=== PATIENT | female | born 1970 | race Caucasian/White ===

== ENCOUNTER 2017-08-31 16:50 | Emergency (ER) | payer OTHER ==
[~2017-08-31] VITALS: Ht 172.7 cm; Wt 100.7 kg
[~2017-08-31 16:50] MED LIST: MOBIC15 M1 PO; MULTIVITAMINS1 EAC9 PO
[2017-08-31 16:52] VITALS: BP 138/82
--- NOTE | 2017-08-31 17:07 | ED ANKLE/FOOT INJURY COMPLAINT ---
History of Present Illness General Chief Complaint: Foot or Ankle Injury Stated Complaint: PT HURT HER LT FOOT Source: patient, old records Exam Limitations: no limitations Vital Signs & Intake/Output Vital Signs & Intake/Output Vital Signs Date Time Temp Pulse Resp B/P B/P Pulse O2 O2 Flow FiO2 Mean Ox Delivery Rate 08/31 1811 98 Room Air 08/31 1700 96.4 08/31 1652 96.4 84 18 138/82 98 Room Air Room Air Allergies Coded Allergies: No Known Allergies (03/04/17) Reconcile Medications Meloxicam (Mobic) 15 MG TABLET 1 TAB PO DAILY PRN pain Multiple Vitamin (Multivitamins) 1 EACH TABLET 1 TAB PO DAILY SUPPLEMENT ( Reported) Triage Note: PT TO ED WITH C/O PAIN TO LEFT HEEL AND LEFT ANKLE, "HEARD A POP", "THERE WAS A DOG ON THE WHITEHEAD, SO I STOPPED AND CAUGHT HIM". Triage Nurses Notes Reviewed? yes Occurred: just prior to arrival Duration: minute(s): Timing: single episode today Severity: moderate Pain/Injury Location: Left: Foot, Heel. LMP (ages 10-50): hysterectomy : No HPI: 46YO female presents to ED complaining of pain to left foot and heel after running injury 30 minutes prior to arrival. Patient states she [place] stray dog on the highway and ran to catch it. While she was chasing after the dog she felt a pop in her left foot and pain in the foot and heel. Patient was recently diagnosed with plantar faciitis of the same foot. She was stretching and wearing orthopedic boot as necessary and reports her plantar faciitis symptoms had improved greatly. Patient has not taken anything yet for pain. She denies fall, bruising, bleeding, numbness. (Maria Del Carmen Hunt) Past History Travel History Traveled to [place] past 21 day No Medical History Any Pertinent Medical History? see below for history Neurological: NONE EENT: NONE Cardiovascular: NONE Respiratory: NONE Gastrointestinal: GASTRIC SLEEVE SURGERY Hepatic: NONE Renal: NONE Musculoskeletal: NONE Psychiatric: NONE Endocrine: NONE Blood Disorders: NONE Cancer(s): NONE DIRECTOR OF TAX SERVICES/Reproductive: NONE Surgical History Surgical History: hysterectomy, GASTRIC SLEEVE Psychosocial History What is your primary language Angolan Tobacco Use: Never used ETOH Use: occasional use Illicit Drug Use: denies illicit drug use Family History Hx Contributory? No (Maria Del Carmen Hunt) Review of Systems Review of Systems Constitutional: Reports: no symptoms. EENTM: Reports: no symptoms. Respiratory: Reports: no symptoms. Cardiovascular: Reports: no symptoms. GI: Reports: no symptoms. Genitourinary: Reports: no symptoms. Musculoskeletal: Reports: see HPI. Skin: Reports: no symptoms. Neurological/Psychological: Reports: no symptoms. Hematologic/Endocrine: Reports: no symptoms. Immunologic/Allergic: Reports: no symptoms. All Other Systems: Reviewed and Negative (Maria Del Carmen Hunt) Physical Exam Physical Exam General Appearance: well developed/nourished, no apparent distress, alert, awake Head: atraumatic, normal appearance Eyes: Bilateral: normal appearance. Ears, Nose, Throat: hearing grossly normal Neck: normal inspection, supple, full range of motion Cardiovascular/Respiratory: normal peripheral pulses, no respiratory distress Back: normal inspection, normal range of motion Leg/Knee/Thigh Left: normal range of motion, normal inspection Leg/Knee/Thigh Right: normal range of motion, normal inspection Ankle Left: nontender Ankle Right: normal inspection, normal range of motion Foot Left: tenderness to plantar heel and dorsal foot Foot Right: normal inspection, normal range of motion Neuro/Vascular: normal motor function, normal sensation, dorsalis pedis pulse 2+ Tendon: normal tendon function Skin: intact, normal color, warm/dry (Maria Del Carmen Hunt) Progress Differential Diagnosis: arterial insufficiency, cellulitis, gout, fracture, sprain, contusion, heel spur, plantar faciitis Plan of Care: Orders Procedure Date/time Status XRY-HEEL, LEFT 08/31 1701 Active XRY-FOOT COMPLETE, LEFT 08/31 1701 Active Current Medications Sig/Faraz Start time Last Medication Dose Stop Time Status Admin Ibuprofen 600 MG ONCE ONE 08/31 1699 UNVr (Motrin) 08/31 170 Patient informed she may require further imaging such as MRI. Patient has an appointment with podiatry next week regarding her heel spur. She has cruthches, ankle brace, and pneumatic boot at home. Patient instructed on RICE therapy and use of NSAIDS. She will return with worsening symptoms or concerns. Diagnostic Imaging: Viewed by Me: Radiology Read. Discussed w/RAD: Radiology Read. Radiology Impression: PATIENT: KEVIN JADE PRESENT AGE: 46 PATIENT ACCOUNT NO: [id number] : 70 LOCATION: [facility] ORDERING PHYSICIAN: Maria Del Carmen NUNN SERVICE DATE: 08/31/17 EXAM TYPE: RAD - XRY-FOOT COMPLETE, LEFT; XRY-HEEL, LEFT EXAMINATIONS: LEFT FOOT 3 VIEWS AND LEFT CALCANEUS 2 VIEWS CLINICAL INFORMATION: Pain following injury. COMPARISON: 07/12/2017. TECHNIQUE: AP, lateral, oblique views of the left foot were obtained. AP and lateral views of the left calcaneus are provided. FINDINGS : There are no fractures or dislocations. There is no significant soft tissue swelling. No ankle joint effusion is identified. There is a small plantar surface calcaneal spur. IMPRESSION: No evidence for acute injury. Small plantar surface calcaneal spur. DICTATED BY: Rolo June MD DATE/TIME DICTATED:1808 [employer] M[employer] OPERATOR:ITA DATE/TIME TRANSCRIBED:08/31/171808 CONFIDENTIAL, DO NOT COPY WITHOUT APPROPRIATE AUTHORIZATION. <Electronically signed in Other Vendor System> SIGNED BY: Rolo June MD 08/31/171812 (Raine NUNN,Maria Del Carmen Clarke) Departure Departure Disposition: HOME OR SELF CARE Condition: Stable Clinical Impression Primary Impression: Heel spur Qualifiers: Laterality: left Qualified Code: M77.32 - Calcaneal spur, left foot Referrals: Cee Xavier MD (PCP/Family) Additional Instructions: Wear pneumatic boot for comfort while walking. You may also use crutches as needed. Keep scheduled appointment with painter spray regarding your heel spur. Take ibuprofen 600-800mg up to three times a day. Return with worsening symptoms or concern. Departure Forms: Customer Survey General Discharge Information (Raine NUNN,Maria Del Carmen Clarke) PA/[employer] DEAN Co-Sign Statement Statement: ED Attending supervision documentation- [] I saw and evaluated the patient. I have also reviewed all the pertinent lab results and diagnostic results. I agree with the findings and the plan of care as documented in the PA's/[employer] DEAN's documentation. [X] I have reviewed the ED Record and agree with the PA's/[employer] SCI[employer] DEAN's documentation. [] Additions or exceptions (if any) to the PAs/[employer] DEAN's note and plan are summarized below: [] (Megan MARK,Jose Rousseau)
--- NOTE | 2017-08-31 18:13 | RADIOLOGY REPORT ---
EXAMINATIONS: LEFT FOOT 3 VIEWS AND LEFT CALCANEUS 2 VIEWS CLINICAL INFORMATION: Pain following injury. COMPARISON: 07/12/2017. TECHNIQUE: AP, lateral, oblique views of the left foot were obtained. AP and lateral views of the left calcaneus are provided. FINDINGS: There are no fractures or dislocations. There is no significant soft tissue swelling. No ankle joint effusion is identified. There is a small plantar surface calcaneal spur. IMPRESSION: No evidence for acute injury. Small plantar surface calcaneal spur.
== END 2017-08-31 19:06 ==
LOC: ERH 16:50
DX: M77.9 Enthesopathy, unspecified (principal)
CPT/HCPCS: 73630-LT; 73650-LT